=== PATIENT | female | born 1975 | race Caucasian/White ===

== ENCOUNTER 2020-09-14 20:34 | Emergency (ER) | payer SELFPAY ==
[~2020-09-14] VITALS: Ht 170.1 cm; Wt 65.7 kg
[2020-09-14] MEDS ORDERED: LACTATED RINGERS 1,000 ML IV ONE (20:45)
[2020-09-14] MEDS ORDERED: PROMETHAZINE INJ 25 MG/ML (PHENERGAN) AMP IVP ONE (20:45)
[2020-09-14] MEDS ORDERED: morphine INJ 10 MG/ML 1ML (SYR OR VIAL) ONE (20:45)
[2020-09-14] MEDS ORDERED: morphine INJ 4 MG/ML 1 ML (VIAL/SYRINGE) IVP ONE (20:45)
[2020-09-14 20:51] LABS: BASOPHILS % (AUTO) 0 % (0-10); EOSINOPHILS # (AUTO) 0.1 10^3/uL (0.0-0.3); EOSINOPHILS % (AUTO) 1 % (0-10); HEMATOCRIT 43 % (35-52); HEMOGLOBIN 14.6 g/dL (11.5-16.0); LYMPHOCYTES # (AUTO) 2.6 10^3/uL (1.0-4.0); LYMPHOCYTES % (AUTO) 29 % (12-44); MEAN CORPUSCULAR HEMOGLOBIN 30 pg (25-34); MEAN CORPUSCULAR HGB CONC 34 g/dL (32-36); MEAN CORPUSCULAR VOLUME 89 fL (80-99); MEAN PLATELET VOLUME 9.5 fL (9.0-12.2); MONOCYTES # (AUTO) 0.6 10^3/uL (0.0-1.0); MONOCYTES % (AUTO) 7 % (0-12); NEUTROPHILS # (AUTO) 5.6 10^3/uL (1.8-7.8); NEUTROPHILS % (AUTO) 63 % (42-75); PLATELET COUNT 398 10^3/uL (130-400)
--- NOTE | 2020-09-14 20:51 | ED Headache ---
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 She does not take NSAIDs because she had a reaction to presumably Toradol after her hysterectomy and was told it was an allergy. She is having nausea with vomiting a couple times non-hematemesis since then. EMS started an IV and gave her a dose of Zofran. She is not had any fevers chills cough shortness of air diarrhea constipation or sick contacts. 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 She does not have any history of recent trauma. She did have a concussion in February, over 6 months ago. She has had tubes in her ears, tonsillectomy, hysterectomy, and gallbladder. She does not have a history of headaches or migraines. She does not routinely follow with a doctor. She is had no visual disturbances, weakness, falls, numbness or paresthesia. Allergies and Home Medications Allergies Coded Allergies: NSAIDS (Non-Steroidal Anti-Inflamma (Verified Allergy, Unknown, 09/14/20) fentanyl (Verified Adverse Reaction, Unknown, nausea, 09/14/20) Uncoded Allergies: CONTRAST (Allergy, Unknown, 09/14/20) Home Medications Ondansetron 4 Mg Tab.rapdis, 4 MG PO Q6H PRN for NAUSEA/VOMITING Prescribed by: PEE ELLIS on 09/14/202322 [fiorinal] 50/325/40 EA, 1 TAB PO Q6H PRN for headache Prescribed by: PEE ELLIS on 09/14/202321 Patient Home Medication List Home Medication List Reviewed: Yes Review of Systems Review of Systems Constitutional: No chills, No diaphoresis, No fever, No malaise, No weakness Eyes: Denies Blindness, Denies Blurred Vision, Denies Decreased Acuity, Denies Foreign Body Sensation, Denies Pain, Denies Photophobia Ears, Nose, Mouth, Throat: denies ear pain, denies ear discharge Respiratory: No cough, No short of breath Cardiovascular: No edema, No Hx of Intervention Gastrointestinal: see HPI; No abdominal pain, No constipation, No diarrhea; nausea, vomiting Genitourinary: No discharge, No dysuria : No Musculoskeletal: see HPI; No back pain, No joint pain All Other Systems Reviewed Negative Unless Noted: Yes Past Sosgluj-Uvsfnx-Feujld Hx Patient Social History Alcohol Use: Denies Use Drug of Choice: Denies Smoking Status: Current Everyday Smoker Type Used: Cigarettes (Pack per day cigarettes) Physical Exam Vital Signs Vital Signs - First Documented 09/14/20 20:35 Temp 36.6 Pulse 91 Resp 18 B/P (MAP) 117/99 (105) Pulse Ox 99 Capillary Refill : Height, Weight, BMI Height: '" Weight: lbs. oz. kg; BMI Method: General Appearance: WD/WN, moderate distress HEENT: PERRL/EOMI (4 mm bilateral reactive symmetric), normal ENT inspection, TMs normal (Bilateral otosclerosis without bulging, erythema, injection.), pharynx normal, other (Atraumatic head) Neck: full range of motion, supple, normal inspection Cardiovascular: normal peripheral pulses, regular rate, rhythm Respiratory: lungs clear, normal breath sounds, no respiratory distress, no accessory muscle use Gastrointestinal: normal bowel sounds (Active bowel sounds), non tender, soft Extremities: non-tender, normal inspection, normal capillary refill Psychiatric: alert, oriented x 3 Crainal Nerves: normal hearing, normal speech, PERRL Coordination/Gait: normal finger to nose, other (Able to transfer from gurney to cot on her own power.) Motor/Sensory: no motor deficit, no sensory deficit Skin: normal color, warm/dry Progress/Results/Core Measures Results/Orders Lab Results Laboratory Tests Test 09/14/20 20:40 Range/Units White Blood Count 9.0 4.3-11.0 10^3/uL Red Blood Count 4.80 3.80-5.11 10^6/uL Hemoglobin 14.6 11.5-16.0 g/dL Hematocrit 43 35-52 % Mean Corpuscular Volume 89 80-99 fL Mean Corpuscular Hemoglobin 30 25-34 pg Mean Corpuscular Hemoglobin Concent 34 32-36 g/dL Red Cell Distribution Width 12.8 10.0-14.5 % Platelet Count 398 130-400 10^3/uL Mean Platelet Volume 9.5 9.0-12.2 fL Immature Granulocyte % (Auto) 0 % Neutrophils (%) (Auto) 63 42-75 % Lymphocytes (%) (Auto) 29 12-44 % Monocytes (%) (Auto) 7 0-12 % Eosinophils (%) (Auto) 1 0-10 % Basophils (%) (Auto) 0 0-10 % Neutrophils # (Auto) 5.6 1.8-7.8 10^3/uL Lymphocytes # (Auto) 2.6 1.0-4.0 10^3/uL Monocytes # (Auto) 0.6 0.0-1.0 10^3/uL Eosinophils # (Auto) 0.1 0.0-0.3 10^3/uL Basophils # (Auto) 0.0 0.0-0.1 10^3/uL Immature Granulocyte # (Auto) 0.0 0.0-0.1 10^3/uL Sodium Level 137 135-145 MMOL/L Potassium Level 3.9 3.6-5.0 MMOL/L Chloride Level 105 98-107 MMOL/L Carbon Dioxide Level 21 21-32 MMOL/L Anion Gap 11 5-14 MMOL/L Blood Urea Nitrogen 12 7-18 MG/DL Creatinine 0.68 0.60-1.30 MG/DL Estimat Glomerular Filtration Rate > 60 BUN/Creatinine Ratio 18 Glucose Level 93 70-105 MG/DL Calcium Level 8.8 8.5-10.1 MG/DL Corrected Calcium 8.6 8.5-10.1 MG/DL Total Bilirubin 0.5 0.1-1.0 MG/DL Aspartate Amino Transf (AST/SGOT) 12 5-34 U/L Alanine Aminotransferase (ALT/SGPT) 11 0-55 U/L Alkaline Phosphatase 49 40-136 U/L C-Reactive Protein High Sensitivity 0.06 0.00-0.50 MG/DL Total Protein 6.9 6.4-8.2 GM/DL Albumin 4.2 3.2-4.5 GM/DL My Orders Orders - PEE ELLIS Morphine Injection (Morphine Injection (09/14/20 20:45) Promethazine Injection (Phenergan Injec (09/14/20 20:45) Lactated Ringers (Lr 1000 Ml Iv Solution (09/14/20 20:45) Cbc With Automated Diff (09/14/20 20:44) Comprehensive Metabolic Panel (09/14/20 20:44) Hs C Reactive Protein (09/14/20 20:44) Erythrocyte Sedimentation Rate (09/14/20 20:44) Ct Head Wo (09/14/20 20:44) Morphine Injection (Morphine Injection (09/14/20 20:45) Rx-Ondansetron Po (Rx-Zofran Po) (09/14/20 23:06) Medications Given in ED Current Medications Medications Dose Ordered Sig/Isi Route Start Time Stop Time Status Last Admin Dose Admin Lactated Ringer's 1,000 ml @ 0 mls/hr Q0M ONCE IV 09/14/20 20:45 09/14/20 20:46 DC 09/14/20 20:51 1,000 MLS/HR Morphine Sulfate 4 mg ONCE ONCE IVP 09/14/20 20:45 09/14/20 20:46 DC 09/14/20 20:57 4 MG Promethazine HCl 25 mg ONCE ONCE IVP 09/14/20 20:45 09/14/20 20:46 DC 09/14/20 20:51 25 MG Vital Signs/I&O 09/14/20 20:35 Temp 36.6 Pulse 91 Resp 18 B/P (MAP) 117/99 (105) Pulse Ox 99 Progress Progress Note #1: Time: 20:50 Progress Note Well-appearing female with sudden onset of headache without a history of headaches. A CT scan has been ordered. Because of her concerns with NSAIDs and she says nausea frequently worsens with fentanyl we will give her some morphine and Phenergan as well as a liter of lactated Ringer's. We will get some basic labs. No external evidence of trauma. Progress Note #2: Time: 22:38 Progress Note The patient has been up to go to the bathroom a couple times. She has got about half of a liter of her fluids through the 22 in her left thumb. Her labs are back and unremarkable. The ESR however is still pending. We are allowing her to get some rest and get her IV fluids in and then she says she think she will be good to go home. She did get some improvement from her pain and nausea early on. She has no longer having any dry heaving. Progress Note #3: Time: 23:13 Progress Note Patient is feeling much better, ambulating around. We have not required any other nausea or pain medicines. We will send her home with some ondansetron and a prescription for Tylenol with codeine. Diagnostic Imaging Diagonstic Imaging: CT (Without IV contrast) Plain Films/CT/US/NM/MRI: head Comments NAME: ARTURO AGUERO REC#: [id number] PT STATUS: REG ER : 1975 PHYSICIAN: PEE ELLIS MD ADMIT DATE: 09/14/20/ER Signed Date of Exam:09/14/20 CT HEAD WO PROCEDURE: CT head without contrast. TECHNIQUE: Multiple contiguous axial images were obtained through the brain without the use of intravenous contrast. Auto Exposure Controls were utilized during the CT exam to meet ALARA standards for radiation dose reduction. INDICATION: Nausea, vomiting, headache. COMPARISON: None. FINDINGS: Ventricles are normal in size, shape and position. There is no midline shift or mass effect. There is no hemorrhage or evidence of acute ischemia. No extra-axial fluid collection or mass is identified. There is no skull fracture. The paranasal sinuses and mastoids are clear. IMPRESSION: Negative CT head. Dictated by: Dictated on workstation # [id number] Dict: 09/14/202112 Trans: 09/14/202128 [facility] [id number] Interpreted by: DAISHA SARMIENTO Electronically signed by: DAISHA SARMIENTO 09/14/202128 Reviewed: Reviewed by Me Departure Impression Primary Impression: Headache Qualified Codes: R51.9 - Headache, unspecified Additional Impression: Nausea & vomiting Qualified Codes: R11.2 - Nausea with vomiting, unspecified Disposition: 01 HOME, SELF-CARE Condition: Improved Departure-Patient Inst. Decision time for Depature: 23:22 Patient Instructions: Headache, Adult (DC) Add. Discharge Instructions: Return to the ER if you are having severe, intractable headache or nausea and vomiting. If you start to have weakness numbness visual changes or other worrisome symptoms then return to the nearest ER. Tonight get some sleep. Follow-up with your primary care doctor. Fiorinal 1 tablet every 6 hours as necessary for headache. Tylenol 1000 mg every 8 hours as necessary for headache. Ondansetron under the tongue 1 tablet every 6 hours as necessary for nausea and/or vomiting. Scripts Ondansetron (Ondansetron Odt) 4 Mg Tab.rapdis 4 MG PO Q6H PRN for NAUSEA/VOMITING, #8 TAB 0 Refills Prov: PEE ELLIS 09/14/20 [fiorinal] 50/325/40 EA No Conflict Check 1 TAB PO Q6H PRN for headache, #15 TAB 0 Refills Prov: PEE ELLIS 09/14/20 Work/School Note: Work Release Form Date Seen in the Emergency Department: Sep 14, 2020 Return to Work: Sep 15, 2020 Restrictions: No Restrictions PEE ELLIS Sep 14, 2020 20:51
[2020-09-14 20:53] LABS: ALBUMIN 4.2 GM/DL (3.2-4.5); CHLORIDE 105 MMOL/L (98-107); POTASSIUM 3.9 MMOL/L (3.6-5.0); SODIUM 137 MMOL/L (135-145)
[2020-09-14 20:55] LABS: CALCIUM 8.8 MG/DL (8.5-10.1)
[2020-09-14 20:56] LABS: GLUCOSE 93 MG/DL (70-105); TOTAL PROTEIN 6.9 GM/DL (6.4-8.2)
[2020-09-14 20:57] LABS: CARBON DIOXIDE 21 MMOL/L (21-32)
[2020-09-14 20:58] LABS: BILIRUBIN,TOTAL 0.5 MG/DL (0.1-1.0)
[2020-09-14 21:00] LABS: ALKALINE PHOSPHATASE 49 U/L (40-136); CREATININE SERUM 0.68 MG/DL (0.60-1.30); GFR ESTIMATED > 60
[2020-09-14 21:01] LABS: BUN/CREATININE RATIO 18
[2020-09-14 21:03] LABS: ALANINE AMINOTRANSFERASE 11 U/L (0-55)
--- NOTE | 2020-09-14 21:25 | Diagnostic Imaging Report ---
PROCEDURE: CT head without contrast. TECHNIQUE: Multiple contiguous axial images were obtained through the brain without the use of intravenous contrast. Auto Exposure Controls were utilized during the CT exam to meet ALARA standards for radiation dose reduction. INDICATION: Nausea, vomiting, headache. COMPARISON: None. FINDINGS: Ventricles are normal in size, shape and position. There is no midline shift or mass effect. There is no hemorrhage or evidence of acute ischemia. No extra-axial fluid collection or mass is identified. There is no skull fracture. The paranasal sinuses and mastoids are clear. IMPRESSION: Negative CT head. Dictated by: Dictated on workstation # [id number]
[2020-09-14] MEDS ORDERED: RX-ONDANSETRON 4 MG ODT (ZOFRAN) PPK #4 PO STA (23:06)
[2020-09-14] MEDS ORDERED: fiorinal PO (23:22)
[2020-09-14] MEDS ORDERED: ONDA4TAB11 PO (23:23)
[2020-09-14 23:54] VITALS: BP 117/99
[2020-09-15 14:17] LABS: ERYTHROCYTE SEDIMENTATION RATE 2 MM/HR (0-20)
== END 2020-09-14 23:36 | disposition home or self-care (01) ==
LOC: ER 20:36
DX: R51.9 Headache, unspecified (principal); R11.2 Nausea with vomiting, unspecified; F17.210 Nicotine dependence, cigarettes, uncomplicated; Z91.041 Radiographic dye allergy status; Z88.6 Allergy status to analgesic agent; Z88.8 Allergy status to other drugs, medicaments and biological substances
CPT/HCPCS: 36415; 70450; 80053; 85025; 85652; 86141